=== PATIENT | female | born 1935 ===

== ENCOUNTER 2018-04-22 14:45 | Inpatient (IN) | payer OTHER ==
[~2018-04-22] VITALS: Ht 149.9 cm; Wt 49.9 kg
[2018-04-23] MEDS ORDERED: [UNRECOGNIZED DRUG - OTHER] PO (09:37)
[2018-04-23] MEDS ORDERED: GLIPIZIDE ER10 MG PO (09:38)
[2018-04-23] MEDS ORDERED: AMLODIPINE BESYL5 MG PO (09:38)
[2018-04-23] MEDS ORDERED: GAVILAX8.5 GM PO (09:38)
[2018-04-23] MEDS ORDERED: QUINAPRIL HCL20 MG PO (09:38)
[2018-04-23] MEDS ORDERED: ZOCOR40 MG PO (09:39)
[2018-05-01] MEDS ORDERED: NEURONTIN300 MG PO (12:00)
[2018-05-01] MEDS ORDERED: INTESTINEX680 M1 PO (12:01)
[2018-05-01] MEDS ORDERED: ULTRACET PO (12:07)
== END 2018-05-01 12:35 | disposition home or self-care (01) | DRG 331 ==
LOC: O/R 04-28 05:35 → SURG 04-28 05:35 → SURH 04-28 09:00 → SURG 04-28 13:06 → O/R 04-28 13:58 → MEDI 04-28 14:00 → SURG 04-28 14:00 → SURH 04-28 14:45 → SURG 04-28 17:47
PROVIDERS: Surgery
PROC: 0DTP4ZZ Resection of Rectum, Percutaneous Endoscopic Approach (ICD-10-PCS; 2018-04-28)
PROC: 07TC4ZZ Resection of Pelvis Lymphatic, Percutaneous Endoscopic Approach (ICD-10-PCS; 2018-04-28)
PROC: 0DJD8ZZ Inspection of Lower Intestinal Tract, Via Natural or Artificial Opening Endoscopic (ICD-10-PCS; 2018-04-28)
PROC: 4A12X4Z Monitoring of Cardiac Electrical Activity, External Approach (ICD-10-PCS; 2018-04-28)
PROC: 0DTN4ZZ Resection of Sigmoid Colon, Percutaneous Endoscopic Approach (ICD-10-PCS; principal; 2018-04-28 09:00)
DX: C19 Malignant neoplasm of rectosigmoid junction (principal); I10 Essential (primary) hypertension